=== PATIENT | female | born 1950 | race Caucasian/White ===

== ENCOUNTER 2020-03-01 09:56 | Inpatient (IN) | payer OTHER ==
[~2020-03-01] VITALS: Ht 157.5 cm; Wt 72.6 kg
[~2020-03-01 09:56] MED LIST: ASPIR 8181 MG PO; CEFUROXIME500 MG PO; SYNTHROID75 MCG PO; ZYRTEC10 MG PO
[2020-03-01 13:05] LABS: RED BLOOD COUNT 5.09 M/UL (4.00-5.10)
[2020-03-01 13:24] LABS: BUN/CREATININE RATIO 18 (0-10)
[2020-03-01] MEDS ORDERED: ELDERBERRY-VIT1 EACH PO (14:33)
[2020-03-01] MEDS ORDERED: GINGER250 MG PO (14:33)
[2020-03-01] MEDS ORDERED: VITAMIN D 40400 UNIT PO (14:33)
[2020-03-01] MEDS ORDERED: FIBER TABS625 MG PO (14:33)
[2020-03-01] MEDS ORDERED: MELATONIN10 M2 PO (14:34)
[2020-03-01] MEDS ORDERED: LUMIGAN 0.01%2.5 ML OP (17:51)
[2020-03-01] MEDS ORDERED: PROTONIX20 MG PO (17:52)
[2020-03-01] MEDS ORDERED: ESCITALOPRAM OX10 MG PO (22:48)
[2020-03-01 23:55] LABS: BUN/CREATININE RATIO 17 (0-10)
[2020-03-02 04:31] LABS: HEMOGLOBIN 14.1 gm/dl (12.3-15.3); RED BLOOD COUNT 4.76 M/UL (4.00-5.10)
[2020-03-02 04:38] LABS: WHITE BLOOD COUNT 3.5 K/UL (4.5-11.0)
[2020-03-02 05:03] LABS: BUN/CREATININE RATIO 17 (0-10)
--- NOTE | 2020-03-03 03:46 | NUR ---
PT REFUSED LABS THIS AM, STATED SHE WAS GOING HOME TODAY AND DIDN'T WANT TO BE POKED ANYMORE
[2020-03-03 11:47] LABS: HEMOGLOBIN 14.3 gm/dl (12.3-15.3); RED BLOOD COUNT 4.81 M/UL (4.00-5.10)
[2020-03-03 11:56] LABS: WHITE BLOOD COUNT 13.4 K/UL (4.5-11.0)
[2020-03-03 12:03] LABS: BUN/CREATININE RATIO 24 (0-10)
[2020-03-04 06:15] LABS: BUN/CREATININE RATIO 25 (0-10)
[2020-03-04 06:42] LABS: HEMOGLOBIN 14.1 gm/dl (12.3-15.3); RED BLOOD COUNT 4.75 M/UL (4.00-5.10); WHITE BLOOD COUNT 10.6 K/UL (4.5-11.0)
[2020-03-05 03:17] LABS: HEMOGLOBIN 14.4 gm/dl (12.3-15.3); RED BLOOD COUNT 4.83 M/UL (4.00-5.10); WHITE BLOOD COUNT 9.8 K/UL (4.5-11.0)
[2020-03-05 03:55] LABS: BUN/CREATININE RATIO 27 (0-10)
[2020-03-06 05:06] LABS: RED BLOOD COUNT 4.72 M/UL (4.00-5.10); WHITE BLOOD COUNT 10.1 K/UL (4.5-11.0)
[2020-03-06 05:10] LABS: BUN/CREATININE RATIO 29 (0-10)
--- NOTE | 2020-03-06 06:45 | NUR ---
PTS IV PUMP KEPT BEEPING DUE TO HER BENDING HER ARM. I OFFERED TO START HER A NEW IV IN A DIFFERENT LOCATION TO PREVENT IT FROM BEEPING FURTHER. SHE REFUSED STATING "I AM GOING HOME TOMORROW, I DO NOT WANT TO BE POKED ANYMORE AND I DONT NEED THE REST OF THAT MEDICINE. IF THE DOCTORS GET MAD TELL THEM I SAID SO." PT WAS EDUCATED ON THE IMPORTANCE OF RECEIVING THE FULL DOSE OF THE MEDICATION, STILL REFUSED TO ALLOW ME TO FINISH IT.
[2020-03-07 02:25] LABS: HEMOGLOBIN 13.6 gm/dl (12.3-15.3); RED BLOOD COUNT 4.54 M/UL (4.00-5.10); WHITE BLOOD COUNT 10.3 K/UL (4.5-11.0)
[2020-03-07 02:48] LABS: BUN/CREATININE RATIO 30 (0-10)
[2020-03-08 06:34] LABS: BUN/CREATININE RATIO 29 (0-10)
[2020-03-08] MEDS ORDERED: DECADRON6 MG PO (09:28)
[2020-03-08] MEDS ORDERED: COMBIVENT RESPIM4 GM INH (09:28)
== END 2020-03-08 14:42 | disposition home or self-care (01) | DRG 177 ==
LOC: ER1 09:56 → M/S 14:05 → CDU 14:05 → M/S 22:47
PROVIDERS: Family Medicine; Internal Medicine Infectious Disease; ADMIT Internal Medicine
PROC: 8E0ZXY6 Isolation (ICD-10-PCS; principal; 2020-03-01)
PROC: XW033E5 Introduction of Remdesivir Anti-infective into Peripheral Vein, Percutaneous Approach, New Technology Group 5 (ICD-10-PCS; 2020-03-01)
DX: U07.1 COVID-19 (principal); J12.82 Pneumonia due to coronavirus disease 2019; J96.01 Acute respiratory failure with hypoxia; E87.1 Hypo-osmolality and hyponatremia; R55 Syncope and collapse; E86.0 Dehydration; F41.9 Anxiety disorder, unspecified; S92.321A Displaced fracture of second metatarsal bone, right foot, initial encounter for closed fracture; E03.9 Hypothyroidism, unspecified; S92.331A Displaced fracture of third metatarsal bone, right foot, initial encounter for closed fracture; Z96.641 Presence of right artificial hip joint; S92.341A Displaced fracture of fourth metatarsal bone, right foot, initial encounter for closed fracture; W19.XXXA Unspecified fall, initial encounter; Y93.9 Activity, unspecified; Y92.009 Unspecified place in unspecified non-institutional (private) residence as the place of occurrence of the external cause; Z88.5 Allergy status to narcotic agent; Z88.2 Allergy status to sulfonamides; Z79.82 Long term (current) use of aspirin; Z79.890 Hormone replacement therapy; Z79.899 Other long term (current) drug therapy
CPT/HCPCS: 36415; 36600; 71045; 73630; 80048; 80053; 81001; 82436; 82550; 82553; 82570; 82728; 82803; 83605; 83735; 83874; 83880; 84133; 84300; 84439; 84443; 84484; 85025; 85379; 85610; 85730; 86140; 93005; 93880; 94640; 94664; 94760; 96365; 96366; 96372; 96375; 99285; J1100; J1200; J1650; J7030; U0002

== ENCOUNTER → 2020-05-15 | Outpatient (CLI) | payer OTHER ==
[~2020-05-15] MED LIST changes: +COMBIVENT RESPIM4 GM INH; +DECADRON6 MG PO; +ELDERBERRY-VIT1 EACH PO; +ESCITALOPRAM OX10 MG PO; +FIBER TABS625 MG PO; +GINGER250 MG PO; +LUMIGAN 0.01%2.5 ML OP; +MELATONIN10 M2 PO; +PROTONIX20 MG PO; +VITAMIN D 40400 UNIT PO
== END ==
LOC: HEART 5 09:00
DX: R94.31 Abnormal electrocardiogram [ECG] [EKG] (principal); I50.30 Unspecified diastolic (congestive) heart failure
CPT/HCPCS: 78452; 93306; A9502; J2785

== ENCOUNTER → 2021-02-02 | Outpatient (CLI) | payer OTHER | LOC: MAMO 11:00 | DX: Z12.31 Encounter for screening mammogram for malignant neoplasm of breast (principal) | CPT/HCPCS: 77063; 77067 ==